=== PATIENT | female | born 1980 | race Caucasian/White ===

== ENCOUNTER 2017-03-18 18:49 | Emergency (ER) | payer BC, OTHER ==
[2017-03-18] MEDS ORDERED: NS 1,000 ML IV ONE ×2 (19:23)
[2017-03-18] MEDS ORDERED: PYRIDOXINE HCL 100 MG/ML VIAL IV ONE (19:23)
--- NOTE | 2017-03-18 19:24 | EDPHY ---
H & P Time Seen by Provider: 03/18/17 19:16 HPI/ROS: CHIEF COMPLAINT: Nausea and vomiting HISTORY OF PRESENT ILLNESS: Patient is 2 para 1 and 13+ 5 weeks presents with nausea and vomiting since 11:00 a.m. today. She has had morning sickness but has not had actual nausea and vomiting until today. She was prescribed diclegis by her OBGYN but has not had to take it. Multiple episodes of nausea and vomiting not associated with diarrhea or abdominal pain or vaginal bleeding. Symptoms severe. Worse with any oral intake. REVIEW OF SYSTEMS: Eye: no change in vision ENT: no sore throat Cardiac: no chest pain or syncope Pulmonary: no cough or SOB Abdomen: HPI Musculoskeletal: no back pain Skin: no rash Neuro: no headache Constitutional: no fever : Today had some darker urine and dysuria but no flank pain or fever. A little bit of increased frequency. A comprehensive 10 point review of systems is otherwise negative aside from elements mentioned in the history of present illness. PAST MEDICAL HISTORY: 2 para 1 Social history: Here with family General Appearance: Alert and conversant, cooperative. Eyes: No scleral icterus. ENT, Mouth: Dry mucous membranes Respiratory: Normal respiratory effort, breath sounds equal, lungs are clear to auscultation. Cardiovascular: Regular rate and rhythm. Gastrointestinal: Abdomen is soft and non tender. Neurological: Alert, face symmetric, normal motor and sensory in extremities. Skin: Warm and dry, no rashes. Musculoskeletal: No peripheral edema. Psychiatric: Not agitated. Emergency Department course/MDM: Normal saline 2 L IV and vitamin B6 IV. Patient would prefer to initially avoid medications for nausea if possible. Urinalysis and chemistry panel. 2049: Feels better, no further nausea or vomiting, did urinate. Now she feels well enough to go home. I do not think we need to do IV or oral antiemetics at this time which is what the patient wants. She will contact her OBGYN tomorrow for follow-up. 2108: FTH 160's. 2119: A little nausea after apple juice but she would prefer to go home without any further treatment or antiemetic medication and try to see how it goes home., which I think is reasonable. Smoking Status: Never smoked Constitutional: Initial Vital Signs Temperature (C) 37.3 C 03/18/17 18:52 Heart Rate 111 H 01/09/18 18:52 Respiratory Rate 17 03/18/17 18:52 Blood Pressure 96/73 L 03/18/17 18:52 O2 Sat (%) 96 03/18/17 18:52 O2 Delivery Mode Room Air Allergies/Adverse Reactions: Sulfa (Sulfonamide Antibiotics) Allergy (Verified 03/18/17 18:52) Home Medications: Medication Instructions Recorded Vits W-Ca,Fe,FA(<1Mg) 03/18/17 Medical Decision Making - Data Points Laboratory Results: Laboratory Results 03/18/17 19:44 03/18/17 03/18/17 20:54 19:44 Sodium 135 mEq/L mEq/L (135-145) Potassium 4.1 mEq/L mEq/L (3.5-5.2) Chloride 103 mEq/L mEq/L (97-110) Carbon Dioxide 19 mEq/l L mEq/l (22-31) Anion Gap 13 mEq/L mEq/L (8-16) BUN 14 mg/dL mg/dL (7-23) Creatinine 0.6 mg/dL mg/dL (0.6-1.0) Estimated GFR > 60 Glucose 109 mg/dL H mg/dL (70-100) Calcium 9.3 mg/dL mg/dL (8.5-10.4) Urine Color YELLOW Urine Appearance HAZY Urine pH 5.0 (5.0-7.5) Ur Specific [place] 1.027 (1.002-1.030) Urine Protein NEGATIVE (NEGATIVE) Urine Ketones 1+ H (NEGATIVE) Urine Blood 1+ H (NEGATIVE) Urine Nitrate NEGATIVE (NEGATIVE) Urine Bilirubin NEGATIVE (NEGATIVE) Urine Urobilinogen NEGATIVE EU EU (0.2-1.0) Ur Leukocyte Esterase NEGATIVE (NEGATIVE) Urine RBC 3-5 /hpf H /hpf (0-3) Urine WBC 1-3 /hpf /hpf (0-3) Ur Epithelial Cells TRACE /lpf /lpf (NONE-1+) Urine Mucus 1+ /lpf /lpf (NONE-1+) Urine Glucose NEGATIVE (NEGATIVE) Medications Given: Discontinued Medications Sodium Chloride (Ns) 1,000 mls @ 0 mls/hr IV EDNOW ONE; Wide Open PRN Reason: Protocol Stop: 03/18/17 19:24 Last Admin: 03/18/17 19:42 Dose: 1,000 mls Sodium Chloride (Ns) 1,000 mls @ 0 mls/hr IV EDNOW ONE; Wide Open PRN Reason: Protocol Stop: 03/18/17 19:24 Last Admin: 03/18/17 20:08 Dose: 1,000 mls Pyridoxine HCl (Vitamin B6) 100 mg IV EDNOW ONE Stop: 03/18/17 19:24 Last Admin: 03/18/17 20:10 Dose: 100 mg Departure - Departure Disposition: Home, Routine, Self-Care Clinical Impression: Hyperemesis gravidarum Condition: Good Instructions: Hyperemesis Gravidarum (ED) Referrals: Endy Sheriff MD [Unknown] - As per Instructions
[2017-03-18 20:20] VITALS: RESP 18
[2017-03-18 21:30] VITALS: BP 108/76; PULSE 104; TEMP 98.1; O2SAT 97
== END 2017-03-18 21:29 | disposition home or self-care (01) ==
PROC: 3E0337Z Introduction of Electrolytic and Water Balance Substance into Peripheral Vein, Percutaneous Approach (ICD-10-PCS; principal; 2017-03-18)
DX: O21.0 Mild hyperemesis gravidarum (principal); E86.9 Volume depletion, unspecified; Z3A.13 13 weeks gestation of pregnancy
CPT/HCPCS: 96365; J3415